=== PATIENT | female | born 1945 | race Caucasian/White ===

== ENCOUNTER 2020-10-24 11:22 | Inpatient (IN) | payer MEDICARE, SELFPAY ==
[2020-10-24] VITALS (19 sets, daily range): BP systolic 148–201; BP diastolic 85–101; PULSE 85–90; RESP 16–20; TEMP 36.2–36.8; O2SAT 95–100; BMI 30.3
--- NOTE | ~2020-10-24 | US_ITS ---
EXAMINATION: US abdomen limited DATE: 10/24/2020 13:19 INDICATION: Epigastric abdominal pain. TECHNIQUE: Multiple grayscale and Doppler ultrasound images of the abdomen were obtained. COMPARISON: None FINDINGS: The pancreas demonstrates indistinct margins, consistent with acute pancreatitis. The liver demonstrates coarsened echotexture and surface nodularity, consistent with cirrhosis. There is nayeli l flow in main portal vein. The gallbladder is normal in size. No gallstones. Gallbladder wall thicke jp is noted, likely secondary to chronic liver disease and/or interstitial edema. There is no sonog raphic Dobbins sign. The common duct is normal and measures 6 mm. IMPRESSION: 1. Acute pancreatitis. 2. Heterogeneous and nodular liver suspicious for cirrhosis. Reviewed, dictated and finalized at location B. NER
--- NOTE | ~2020-10-24 | CT_ITS ---
EXAMINATION: CT abdomen pelvis w con DATE: 10/25/2020 08:59 INDICATION: Epigastric abdominal pain. Acute pancreatitis. TECHNIQUE: Computed tomography (CT) of the abdomen and pelvis was performed with 100 mL Omnipaque 350 intravenous contrast. Automated exposure control and iterative reconstruction technique were employe d. The dose-length product was 612.05 mGy-cm. COMPARISON: Ultrasound 10/24/2020 FINDINGS: The visualized portions of the lung bases demonstrate mild atelectasis. There is mild bronc hiectasis in the lower lobes. No pleural effusion. The heart size is normal. No pericardial effusion. The liver is normal. Calcifications in the spleen are consistent with old granulomatous disease. The gallbladder is normal in size. Gallbladder wall thickening is noted. There is fat stranding around t he pancreas, consistent with pancreatitis. The adrenal glands and kidneys are normal. There is divert iculosis of the colon without evidence of diverticulitis. There are no dilated loops of bowel. The ap pendix is normal. There is an umbilical hernia containing fat. There are no pathologically enlarged l ymph nodes. The endometrial complex is thickened to 9 mm. There is trace pelvic ascites. There is mod erate lumbar spondylosis. IMPRESSION: 1. Acute interstitial pancreatitis. 2. Gallbladder wall thickening, which may be secondary to chronic cholecystitis, chronic liver diseas e, or interstitial edema. 3. Thickened endometrial complex. The differential diagnosis includes endometrial hyperplasia, polyp, and carcinoma. Biopsy is recommended. Reviewed, dictated and finalized at location B. CAL INSTRUMENT MECHANIC IMPRESSION: 1. Acute interstitial pancreatitis. 2. Gallbladder wall thickening, which may be secondary to chronic cholecystitis , chronic liver disease, or interstitial edema. 3. Thickened endometrial complex. The differential diagnosis includes endometri al hyperplasia, polyp, and carcinoma. Biopsy is recommended.
--- NOTE | ~2020-10-24 | US_ITS ---
EXAMINATION: US pelvic complete w TV DATE: 10/25/2020 14:09 INDICATION: Thickened endometrium. TECHNIQUE: Multiple transabdominal and transvaginal sonographic images of the pelvis were obtained. COMPARISON: CT abdomen and pelvis 10/25/2020 FINDINGS: TRANSABDOMINAL ULTRASOUND: The uterus measures 8.8 x 2.7 x 3.8 cm. There is no free fluid in the pelvis. TRANSVAGINAL ULTRASOUND: The endometrial complex measures 10 mm in thickness. The right ovary measures 1.9 x 1.8 x 1.2 cm. The left ovary measures 1.7 x 1.9 x 1.6 cm. There is normal vascular flow in the ovaries. IMPRESSION: 1. Thickened endometrial complex. The differential diagnosis includes endometrial hyperplasia, polyp, and carcinoma. Biopsy is recommended. Reviewed, dictated and finalized at location B. BLEACHING PLEATER IMPRESSION: 1. Thickened endometrial complex. The differential diagnosis includes endometri al hyperplasia, polyp, and carcinoma. Biopsy is recommended.
[2020-10-24 11:44] LABS: Basophils Absolute Auto 0.1 K/mm3 (0.0-0.1); Basophils Percent Auto 0.5 % (0.2-1.2); Eosinophils Absolute Auto 0.2 K/mm3 (0-0.3); Eosinophils Percent Auto 2.2 % (0-4.4); Hematocrit 48.5 % (37.0-47.0); Hemoglobin 15.8 g/dL (12.0-15.0); Immature Granulocyte Absolute 0.03 K/mm3 (0.00-0.031); Immature Granulocyte Percent A 0.3 % (0-0.5); Lymphocytes Absolute Auto 1.34 K/mm3 (0.9-3.2); Lymphocytes Percent Auto 12.8 % (18.3-44.2); Mean Corpuscular HGB Conc 32.6 g/dl (32-36); Mean Corpuscular Hemoglobin 29.7 pg (26-34); Mean Corpuscular Volume 91.2 fl (80-100); Mean Platelet Volume 10.4 fl (7.4-10.4); Monocytes Absolute Auto 0.8 K/mm3 (0.1-0.6); Monocytes Percent Auto 7.6 % (2.6-8.5); Neutrophils Percent Auto 76.6 % (45.5-73.1); Platelet Count Result 263 k/mm3 (150-375); Red Blood Count 5.32 M/mm3 (4.2-5.4); Red Cell Distribution Width 13.1 % (11.5-14.5); White Blood Count 10.5 K/mm3 (4.5-10.0)
[2020-10-24 11:46] LABS: Add Urine Microscopic? YES; Appearance Urine Clear (Clear); Bacteria Urine Trace /hpf; Bilirubin Urine Negative (Negative); Blood Urine Negative (Negative); Color Urine Yellow (Yellow); Glucose Urine UA Negative (Negative); Ketones Urine Negative (Negative); Leukocyte Esterase Ur Trace LEU/UL (Negative); Mucus Urine Rare /lpf; Nitrate Urine Negative (Negative); Protein Urine Negative (Negative); RBC Urine 0-2 /hpf (0-2); Squamous Epithelial Cell Urine Occasional /hpf (Few); Urobilinogen Urine Negative mg/dL (<2.0); WBC Urine 0-3 /hpf
[2020-10-24 12:10] LABS: Alanine Aminotransferase 71 U/L (4-35); Albumin Level 4.4 g/dL (3.5-5.1); Alkaline Phosphatase 106 U/L (38-126); Anion Gap 9 mmol/L (8-16); Aspartate Amino Transferase 115 U/L (14-36); Bilirubin,Total 1.3 mg/dL (0.2-1.3); Blood Urea Nitrogen 18 mg/dL (7-17); Calcium 9.5 mg/dL (8.4-10.2); Carbon Dioxide 31 mmol/L (22-30); Chloride 102 mmol/L (98-107); Estimated CRCL calculation 41 ml/min; Estimated Glomerular Filt Rate 49; Glucose 119 mg/dL (65-105); Sodium 142 mmol/L (137-145)
--- NOTE | 2020-10-24 12:57 | ED.ABDPAIN ---
HPI - Abdominal Pain General Chief Complaint: Abdominal Pain Stated Complaint: ABD pain Time Seen by Provider: 10/24/20 11:28 Source: patient Mode of arrival: ambulatory Limitations: no limitations History of Present Illness HPI narrative: 75-year-old female Previously healthy except for her high blood pressure Complains of roughly a 1 month history of episodic upper abdominal pains She cannot identify anything that seems to trigger the episodes, she notes that one time they were relieved by bowel movement She does not smoke rarely drinks alcohol rarely takes NSAIDs No previous abdominal operations Related Data Home Medications Medication Instructions Recorded Confirmed biotin 5,000 mcg sublingual tablet 5,000 mcg SUBLINGUAL DAILY 05/23/20 cyanocobalamin (vitamin B-12) 500 500 mcg PO DAILY 05/23/20 mcg tablet losartan 50 mg DAILY 10/24/20 Allergies Allergy/AdvReac Type Severity Reaction Status Date / Time gemfibrozil Allergy Unknown Abdominal Verified 05/23/20 14:04 pain lisinopril Allergy Unknown Cough Verified 05/23/20 14:04 lovastatin Allergy Unknown Nausea And Verified 05/23/20 14:04 Vomiting PMFSH Past Medical History Medical History (Updated 10/24/20 @ 14:17 by Sim Kate MD) Hyperlipidemia Hypertension Vitamin D deficiency Family History Family History Father Family history of kidney disease Family history of renal failure Mother Carcinoma of colon Family history of cardiovascular disease Grandparent Diabetes mellitus Family history of cardiovascular disease Family history of Parkinson's disease Social History Social History Smoking status: Never smoker Alcohol intake: current Substance use: never Substance use type: does not use Gender identity (if verbalized by the patient): Female Spiritual care concerns: No Agree to blood products: Yes Course Course Emergency Course: mildly abnl lfts gb unremarkable but lipase elías high consider, lipids, passed gallstone Vital Signs Vital signs: Vital Signs Pulse Oximetry 98 10/24/20 11:39 Temperature 36.8 C 10/24/20 11:41 Pulse Rate 85 10/24/20 11:41 Respiratory Rate 18 10/24/20 11:41 Blood Pressure 162/88 H 10/24/20 12:46 Pulse Oximetry 95 10/24/20 12:46 MDM - Abdominal Pain Lab Data Result diagrams: 10/24/20 11:37 10/24/20 11:37 Labs: Lab Results 10/24/20 10/24/20 10/24/20 Range/Units 11:37 11:37 11:38 WBC 10.5 H (4.5-10.0) K/mm3 RBC 5.32 (4.2-5.4) M/mm3 Hgb 15.8 H (12.0-15.0) g/dL Hct 48.5 H (37.0-47.0) % MCV 91.2 (80-100) fl MCH 29.7 (26-34) pg MCHC 32.6 (32-36) g/dl RDW 13.1 (11.5-14.5) % Plt Count 263 (150-375) k/mm3 MPV 10.4 (7.4-10.4) fl Immature Gran % (Auto) 0.3 (0-0.5) % Neut % (Auto) 76.6 H (45.5-73.1) % Lymph % (Auto) 12.8 L (18.3-44.2) % Christian % (Auto) 7.6 (2.6-8.5) % Eos % (Auto) 2.2 (0-4.4) % Baso % (Auto) 0.5 (0.2-1.2) % Lymph # (Auto) 1.34 (0.9-3.2) K/mm3 Christian # (Auto) 0.8 H (0.1-0.6) K/mm3 Eos # (Auto) 0.2 (0-0.3) K/mm3 Baso # (Auto) 0.1 (0.0-0.1) K/mm3 Abs Immat Gran (auto) 0.03 (0.00-0.031) K/mm3 Absolute Neuts (auto) 8.0 H (1.3-6.7) K/mm3 Absolute Nucleated RBC 0.0 (0.0-0.012) K/mm3 Nucleated RBC % 0.0 (0.0-0.2) % Sodium 142 (137-145) mmol/L Potassium 4.0 (3.4-5.0) mmol/L Chloride 102 (98-107) mmol/L Carbon Dioxide 31 H (22-30) mmol/L Anion Gap 9 (8-16) mmol/L BUN 18 H (7-17) mg/dL Creatinine 1.10 H (0.7-1.0) mg/dL Estim Creat Clear Calc 41 ml/min Estimated GFR 49 L (59 - ) Glucose 119 H (65-105) mg/dL Calcium 9.5 (8.4-10.2) mg/dL Total Bilirubin 1.3 (0.2-1.3) mg/dL AST 115 H (14-36) U/L ALT 71 H (4-35)
--- NOTE | 2020-10-24 12:59 | PC.NURSE ---
Patient with further orders. patient in ultrasound now.
[2020-10-24 13:08] LABS: Lipase 38712 U/L (23-300)
[2020-10-24] MEDS: BELLADONNA ALK/PHENOB ELIX 10 ML, MAG HYDROX/ALUMINUM HYD/SIMETH 30 ML, LIDOCAINE HCL 2... PO (13:23)
[2020-10-24] MEDS: LACTATED RINGERS 1,000 ML 200 ML IV CONT ×3 (14:33→22:35)
[2020-10-24] MEDS: PANTOPRAZOLE SODIUM IV 40 MG VIAL 80 MG IV PUSH (14:33)
--- NOTE | 2020-10-24 14:42 | PC.NURSE ---
patient aware of diagnosis and treatment plan. planning for admission upstairs. has bed assignment. meds given. SBAR faxed.
--- NOTE | 2020-10-24 14:50 | PC.NURSE ---
SBAR completed and faxed to floor.
[2020-10-24 15:17] LABS: LDL Cholesterol Direct 249 mg/dL
--- NOTE | 2020-10-24 15:30 | PC.NURSE ---
spoke with RN on 2nd floor. ok to transfer to [facility].
[2020-10-24 15:40] LABS: HDL Direct 59 mg/dL; Triglycerides 218 mg/dL (<150)
[2020-10-24 16:06] LABS: Cholesterol 369 mg/dL (0-200)
--- NOTE | 2020-10-24 16:09 | ADMGEN ---
This patient, Eugenia Kohler, was admitted to 2 Medical Room 241-. Patient/family oriented to hospital policies and general routines including ID bracelet, bed and alarms, visiting hours, pain management, procedures, bathroom and other care routines, personal items, smoking policy, room service/diet, and visiting hours. Information on how to activate the Rapid Response Team has been discussed. Patient/Family are encouraged to report perceived risks to care and to ask questions if they do not understand what they are told or what they should do.
--- NOTE | 2020-10-24 17:21 | PM.IMHP ---
H&P: HPI History of Present Illness Date/Time: 10/24/20 17:21 Chief complaint: acute pancreatitis Narrative: Eugenia Kohler is a 75 year old female with no significant past medical history other than hypertension and mild hyperlipidemia patient presented emergency department a complaint of abdominal epigastric it is not radiate to the back, only occurs anterior expect of the abdomen, patient states that her symptoms started about 2 months ago and since then she has had 5 episodes abdominal pain with nausea but no vomiting and pain resolved itself without any treatment however last couple of days patient had been quite uncomfortable and pain was persisting today patient came to emergency department for further evaluation, patient creatinine is slightly elevated the patient had a abdominal ultrasound it showed patient has acute pancreatitis and her lipase are elevated 38,712, AST 115, ALT 71. Patient denies any history of alcohol and occasionally patient drinks once in a while, no history of hepatitis, no family history of pancreatic cancer however there was a colon cancer and family with her mother. Plan is to monitor patient keep her NPO, will trend lipase, check hepatitis panel, once patient kidney function improves, will do the CT scan of the abdomen. Review of Systems Review of Systems: All systems reviewed & are unremarkable except as noted in HPI and below PMFSH Past Medical History Medical History (Updated 10/24/20 @ 14:17 by Sim Kate MD) Hyperlipidemia Hypertension Vitamin D deficiency Family History Family History Father Family history of kidney disease Family history of renal failure Mother Carcinoma of colon Family history of cardiovascular disease Grandparent Diabetes mellitus Family history of cardiovascular disease Family history of Parkinson's disease Social History Social History Smoking status: Never smoker Alcohol intake: never Substance use: never Substance use type: does not use Gender identity (if verbalized by the patient): Female Spiritual care concerns: No Agree to blood products: Yes Meds Home Medications and Allergies Home Medications Medication Instructions Recorded Confirmed Type cholecalciferol (vitamin D3) 125 5,000 unit PO DAILY #90 cap 10/06/19 10/24/20 Rx mcg (5,000 unit) capsule biotin 5,000 mcg sublingual tablet 5,000 mcg SUBLINGUAL DAILY 05/23/20 10/24/20 History cyanocobalamin (vitamin B-12) 500 500 mcg PO DAILY 05/23/20 10/24/20 History mcg tablet losartan 50 mg PO DAILY 10/24/20 10/24/20 History Allergies Allergy/AdvReac Type Severity Reaction Status Date / Time gemfibrozil Allergy Unknown Abdominal Verified 05/23/20 14:04 pain lisinopril Allergy Unknown Cough Verified 05/23/20 14:04 lovastatin Allergy Unknown Nausea And Verified 05/23/20 14:04 Vomiting Vital Signs Vital Signs - 24 hr 10/24/20 11:39 10/24/20 11:41 10/24/20 11:45 Temperature 98.2 F Pulse Rate 85 Respiratory Rate 18 Blood Pressure 201/95 H Pulse Oximetry 98 100 99 10/24/20 11:47 10/24/20 11:48 10/24/20 12:08 Temperature Pulse Rate Respiratory Rate Blood Pressure 179/101 H Pulse Oximetry 97 100 98 10/24/20 12:15 10/24/20 12:17 10/24/20 12:18 Temperature Pulse Rate Respiratory Rate Blood Pressure 158/87 H Pulse Oximetry 95 96 95 10/24/20 12:31 10/24/20 12:32 10/24/20 12:45 Temperature Pulse Rate Respiratory Rate Blood Pressure 164/86 H Pulse Oximetry 95 96 95 10/24/20 12:46 10/24/20 12:47 10/24/20 14:37 Temperature Pulse Rate Respiratory Rate Blood Pressure 162/88 H Pulse Oximetry 95 96 97 10/24/20 14:38 10/24/20 15:07 10/24/20 15:50 Temperature 97.2 F L Pulse Rate 90 Respiratory Rate 16 Blood Pressure 153/98 H 148/85 H Pulse Oximetry 95 96
[2020-10-24] MEDS: ONDANSETRON INJ 4 MG/2 ML VIAL IV PUSH (22:37)
[2020-10-25] MEDS: LACTATED RINGERS 1,000 ML 200 ML IV CONT ×2 (03:50→09:07)
[2020-10-25 04:30] VITALS: BP 133/61; PULSE 83; RESP 18; TEMP 37; O2SAT 100
[2020-10-25 05:07] LABS: Basophils Percent Auto 0.4 % (0.2-1.2); Eosinophils Absolute Auto 0.2 K/mm3 (0-0.3); Eosinophils Percent Auto 2.2 % (0-4.4); Hematocrit 38.3 % (37.0-47.0); Hemoglobin 12.7 g/dL (12.0-15.0); Immature Granulocyte Absolute 0.03 K/mm3 (0.00-0.031); Immature Granulocyte Percent A 0.4 % (0-0.5); Lymphocytes Absolute Auto 0.95 K/mm3 (0.9-3.2); Lymphocytes Percent Auto 11.2 % (18.3-44.2); Mean Corpuscular HGB Conc 33.2 g/dl (32-36); Mean Corpuscular Hemoglobin 29.7 pg (26-34); Mean Corpuscular Volume 89.7 fl (80-100); Mean Platelet Volume 10.2 fl (7.4-10.4); Monocytes Absolute Auto 0.8 K/mm3 (0.1-0.6); Monocytes Percent Auto 9.1 % (2.6-8.5); Neutrophils Absolute Auto 6.5 K/mm3 (1.3-6.7); Neutrophils Percent Auto 76.7 % (45.5-73.1); Platelet Count Result 188 k/mm3 (150-375); Red Blood Count 4.27 M/mm3 (4.2-5.4); Red Cell Distribution Width 13.1 % (11.5-14.5); White Blood Count 8.5 K/mm3 (4.5-10.0)
[2020-10-25 05:32] LABS: LDL Cholesterol Direct 184 mg/dL
[2020-10-25 05:43] LABS: Alanine Aminotransferase 80 U/L (4-35); Albumin Level 3.3 g/dL (3.5-5.1); Alkaline Phosphatase 89 U/L (38-126); Anion Gap 2 mmol/L (8-16); Aspartate Amino Transferase 62 U/L (14-36); Bilirubin Indirect 0.7 mg/dL (0-1.1); Bilirubin,Total 0.7 mg/dL (0.2-1.3); Blood Urea Nitrogen 12 mg/dL (7-17); Calcium 8.8 mg/dL (8.4-10.2); Carbon Dioxide 31 mmol/L (22-30); Chloride 105 mmol/L (98-107); Cholesterol 262 mg/dL (0-200); Estimated CRCL calculation 41 ml/min; Estimated Glomerular Filt Rate 49; Glucose 100 mg/dL (65-105); HDL Direct 44 mg/dL; Lipase 1613 U/L (23-300); Magnesium 1.9 mg/dL (1.6-2.3); Potassium 3.9 mmol/L (3.4-5.0); Sodium 138 mmol/L (137-145); Triglycerides 98 mg/dL (<150)
[2020-10-25 06:09] LABS: Hepatitis B Surface Antigen Negative (Negative)
[2020-10-25 06:15] LABS: HAV RESULT Negative (Negative); Hepatitis B Core IgM Result Negative (Negative)
[2020-10-25] MEDS: ONDANSETRON INJ 4 MG/2 ML VIAL IV PUSH (06:19)
[2020-10-25 06:26] LABS: Hepatitis C Virus Antibody Negative (Negative)
--- NOTE | 2020-10-25 08:47 | PC.NURSE ---
Patient to CT scan per wheelchair. IVF saline locked.
--- NOTE | 2020-10-25 08:53 | WPDGICN ---
Assessment and Plan Assessment and plan (1) Acute pancreatitis: Code(s): K85.90 - Acute pancreatitis without necrosis or infection, unspecified Status: Acute Assessment and Plan: Patient has acute pancreatitis. The etiology is unclear. No obvious gallstones evident by ultrasound. No clinical findings for cirrhosis. Agree with CT scan of the abdomen and pancreas to assess more thoroughly. Most likely she has idiopathic pancreatitis. But cannot exclude passage of a common duct stone. Will continue to monitor LFTs and lipase period and p.o. and pain control for now. Advance diet slowly. (2) Family history of colon cancer in mother: Code(s): Z80.0 - Family history of malignant neoplasm of digestive organs Status: Acute Assessment and Plan: Patient's mother had colon cancer. Last screening colonoscopy was 6 years ago. Plan is for follow-up colonoscopy this can be arranged electively as an outpatient after discharge. GI Consult Note Consult date/time: 10/25/20 08:53 HPI: Eugenia Kohler is a 75 year old female I am asked to see at the request of the hospitalist service. Patient reports over last 2 months has had several episodes of epigastric pain. She has had no significant nausea vomiting. The pain became rather intense yesterday and persisted this prompted her to go to the emergency room. In the emergency room she was identified as having elevated lipase. Ultrasound consistent with pancreatitis. There was a question of a nodular appearance to the liver as well. Family history is significant that her mother had colon cancer. Patient did have a colonoscopy 6 years ago. She denies any significant nausea or vomiting. She has had no weight loss or bleeding. No symptoms prior to this episode over the last several months. Review of Systems Review of Systems: All systems reviewed & are unremarkable except as noted in HPI and below [facility] Past Medical History Medical History (Updated 10/25/20 @ 08:56 by Sim Nolen MD) Hyperlipidemia Hypertension Vitamin D deficiency Family History Family History Father Family history of kidney disease Family history of renal failure Mother Carcinoma of colon Family history of cardiovascular disease Grandparent Diabetes mellitus Family history of cardiovascular disease Family history of Parkinson's disease Social History Social History Smoking status: Never smoker Alcohol intake: never Substance use: never Substance use type: does not use Gender identity (if verbalized by the patient): Female Spiritual care concerns: No Agree to blood products: Yes Meds Home Medications and Allergies Home Medications Medication Instructions Recorded Confirmed Type cholecalciferol (vitamin D3) 125 5,000 unit PO DAILY #90 cap 10/06/19 10/24/20 Rx mcg (5,000 unit) capsule biotin 5,000 mcg sublingual tablet 5,000 mcg SUBLINGUAL DAILY 05/23/20 10/24/20 History cyanocobalamin (vitamin B-12) 500 500 mcg PO DAILY 05/23/20 10/24/20 History mcg tablet losartan 50 mg PO DAILY 10/24/20 10/24/20 History Allergies Allergy/AdvReac Type Severity Reaction Status Date / Time gemfibrozil Allergy Unknown Abdominal Verified 05/23/20 14:04 pain lisinopril Allergy Unknown Cough Verified 05/23/20 14:04 lovastatin Allergy Unknown Nausea And Verified 05/23/20 14:04 Vomiting Vital Signs Vital Signs - 24 hr 10/24/20 11:39 10/24/20 11:41 10/24/20 11:45 Temperature 98.2 F Pulse Rate 85 Respiratory Rate 18 Blood Pressure 201/95 H Pulse Oximetry 98 100 99 10/24/20 11:47 10/24/20 11:48 10/24/20 12:08 Temperature Pulse Rate Respiratory Rate Blood Pressure 179/101 H Pulse Oximetry 97 100 98 10/24/20 12:15 10/24/20 12:17 10/24/20 12:18 Temperature Pulse Rate Respirator
--- NOTE | 2020-10-25 09:03 | PC.NURSE ---
Patient return from CT scan.
[2020-10-25] MEDS: PANTOPRAZOLE SODIUM IV 40 MG VIAL IV PUSH (09:07)
--- NOTE | 2020-10-25 12:14 | PM.GYNPNOP ---
YARD INSPECTOR - A/P Assessment and plan (1) Thickened endometrium: Code(s): R93.89 - Abnormal findings on diagnostic imaging of other specified body structures Status: Acute Assessment and Plan: Spoke with the patient, she denies any vaginal bleeding, she denies any vaginal discharge, pelvic pain. We talked about the findings on the CT scan. There is a thickening that is heterogeneous. We agreed to proceed with the ultrasound to further evaluate the endometrium. We discussed endometrial biopsy, hysteroscopy D&C. We are going to follow up on the ultrasound results and consider hysteroscopy D&C here at the hospital while she is here. Time Spent With Patient Time: Total time spent is greater than 50% in coordination of care (as documented) at patient's floor/unit and/or counseling patient: Time with patient: less than 15 minutes YARD INSPECTOR- PN:Subj Post-Op Subjective Date/time seen: 10/25/20 12:14 Spoke with the patient, she denies any vaginal bleeding, she denies any vaginal discharge, pelvic pain. We talked about the findings on the CT scan. There is a thickening that is heterogeneous. We agreed to proceed with the ultrasound to further evaluate the endometrium. We discussed endometrial biopsy, hysteroscopy D&C. We are going to follow up on the ultrasound results and consider hysteroscopy D&C here at the hospital while she is here. YARD INSPECTOR - PN: Obj Data Vital Signs Vital Signs: Vital Signs - 24 hr 10/24/20 12:15 10/24/20 12:17 10/24/20 12:18 Temperature Pulse Rate Respiratory Rate Blood Pressure 158/87 H Pulse Oximetry 95 96 95 10/24/20 12:31 10/24/20 12:32 10/24/20 12:45 Temperature Pulse Rate Respiratory Rate Blood Pressure 164/86 H Pulse Oximetry 95 96 95 10/24/20 12:46 10/24/20 12:47 10/24/20 14:37 Temperature Pulse Rate Respiratory Rate Blood Pressure 162/88 H Pulse Oximetry 95 96 97 10/24/20 14:38 10/24/20 15:07 10/24/20 15:50 Temperature 97.2 F L Pulse Rate 90 Respiratory Rate 16 Blood Pressure 153/98 H 148/85 H Pulse Oximetry 95 96 97 10/24/20 21:44 10/25/20 04:30 Temperature 97.3 F L 98.6 F Pulse Rate 85 83 Respiratory Rate 20 18 Blood Pressure 151/85 H 133/61 Pulse Oximetry 96 100 Intake/Output Intake/Output: Intake & Output 10/22/20 10/23/20 10/24/20 10/25/20 23:59 23:59 23:59 23:59 Intake Total 1999 2390 Output Total 1200 Balance 1999 1190 Meds/Results Medications: Active Medications Generic Name Dose Route Start Last Admin Trade Name Freq PRN Reason Stop Dose Admin Fentanyl Citrate 50 mcg 10/24/20 14:09 Fentanyl Citrate Inj (*Crx) 100 Mcg/2 Ml Vial IV PUSH Q2H PRN Pain Rated 7-10 Lactated Ringer's 1,000 mls @ 200 mls/hr 10/24/20 14:10 10/25/20 09:07 Lr - Lactated Ringers Iv IV CONT 200 mls/hr .Q5H REYMUNDO Administration Ondansetron HCl 4 mg 10/24/20 14:09 10/25/20 06:19 Ondansetron Inj 4 Mg/2 Ml Vial IV PUSH 4 mg Q4H PRN Administration Nausea Pantoprazole Sodium 40 mg 10/25/20 09:00 10/25/20 09:07 Pantoprazole Sodium Iv 40 Mg Vial IV PUSH 40 mg QAM REYMUNDO Administration Radiology Results: ITS Impressions Abdomen Ultrasound 10/24/20 13:20 IMPRESSION: 1. Acute pancreatitis. 2. Heterogeneous and nodular liver suspicious for cirrhosis. Abdomen/Pelvis CT 10/25/20 09:35 IMPRESSION: 1. Acute interstitial pancreatitis. 2. Gallbladder wall thickening, which may be secondary to chronic cholecystitis, chronic liver disease, or interstitial edema. 3. Thickened endometrial complex. The differential diagnosis includes endometrial hyperplasia, polyp, and carcinoma. Biopsy is recommended. Labs CBC & Chem 7: 10/25/20 04:51 10/25/20 04:51 Labs: Laboratory Results - last 24 hr 10/24/20 10/24/20 10/25/20 11:37 11:37 04:51 WBC 8.5 RBC 4.27 Hgb 12.7 D Hct 38.3 MCV 89.7 MCH 29.7 MCHC 33.2 RDW 13
[2020-10-25 13:13] VITALS: BP 165/84
[2020-10-25 13:25] VITALS: BP 143/66; PULSE 91; RESP 18; TEMP 36.5; O2SAT 96
--- NOTE | 2020-10-25 13:37 | PC.NURSE ---
Patient to ultrasound per wheelchair.
[2020-10-25] MEDS: LACTATED RINGERS 1,000 ML 125 ML IV CONT ×2 (14:47→23:20)
[2020-10-25] MEDS: LOSARTAN POTASSIUM 50 MG TABLET PO (14:54)
--- NOTE | 2020-10-25 15:46 | PM.IMPN ---
Progress Note: A&P Assessment and Plan (1) Acute pancreatitis: Code(s): K85.90 - Acute pancreatitis without necrosis or infection, unspecified Status: Acute Assessment and Plan: Eugenia Kohler is a 75 year old female with no significant past medical history other than hypertension and mild hyperlipidemia patient presented emergency department a complaint of abdominal epigastric it is not radiate to the back, only occurs anterior expect of the abdomen, patient states that her symptoms started about 2 months ago and since then she has had 5 episodes abdominal pain with nausea but no vomiting and pain resolved itself without any treatment however last couple of days patient had been quite uncomfortable and pain was persisting today patient came to emergency department for further evaluation, patient creatinine is slightly elevated the patient had a abdominal ultrasound it showed patient has acute pancreatitis and her lipase were elevated 38,712, upon arrival her lipase have trended down to 1613 today 10/25. Patient denies any history of alcohol and occasionally patient drinks once in a while, no history of hepatitis, no family history of pancreatic cancer however there was a colon cancer and family with her mother. Plan is to monitor patient keep her NPO, will trend lipase, check hepatitis panel, once patient kidney function improves, Today patient had a CT scan of the abdomen and pelvis: 1. Acute interstitial pancreatitis. 2. Gallbladder wall thickening, which may be secondary to chronic cholecystitis, chronic liver disease, or interstitial edema. 3. Thickened endometrial complex. The differential diagnosis includes endometrial hyperplasia, polyp, and carcinoma. Biopsy is recommended. Patient clinical symptoms have improved and her lipase have trended down will start the patient on clear liquid and advanced her diet as tolerated, will consult back end web developer further recommendation. Will continue to monitor patient, seen by GI and further recommendation to follow (2) Renal insufficiency: Code(s): N28.9 - Disorder of kidney and ureter, unspecified Status: Acute Assessment and Plan: Most likely secondary to dehydration due to poor p.o. intake will hydrate the patient and monitor kidney function (3) Hyperlipidemia: Code(s): E78.5 - Hyperlipidemia, unspecified Status: Acute Assessment and Plan: Clinically stable patient is NPO (4) Vitamin D deficiency: Code(s): E55.9 - Vitamin D deficiency, unspecified Status: Acute Assessment and Plan: Clinically stable patient is NPO (5) Hypertension: Code(s): I10 - Essential (primary) hypertension Status: Acute Assessment and Plan: Will monitor patient is NPO Subjective Date/time seen: Eugenia Kohler is a 75 year old female with no significant past medical history other than hypertension and mild hyperlipidemia patient presented emergency department a complaint of abdominal epigastric it is not radiate to the back, only occurs anterior expect of the abdomen, patient states that her symptoms started about 2 months ago and since then she has had 5 episodes abdominal pain with nausea but no vomiting and pain resolved itself without any treatment however last couple of days patient had been quite uncomfortable and pain was persisting today patient came to emergency department for further evaluation, patient creatinine is slightly elevated the patient had a abdominal ultrasound it showed patient has acute pancreatitis and her lipase were elevated 38,712, upon arrival her lipase have trended down to 1613 today 10/25. Patient denies any history of alcohol and occasionally patient drinks once in a while, no history of hepatitis, no family history of pancreatic cancer however there was a colon cancer and family with her mother. Plan is to monitor patient keep her NPO, will trend lipase, check hepatitis panel, once patient kidney func
[2020-10-25 22:00] VITALS: BP 156/75; PULSE 92; RESP 20; TEMP 37.3; O2SAT 100
[2020-10-26 05:18] VITALS: BP 119/55; PULSE 78; RESP 20; TEMP 36.7; O2SAT 96
[2020-10-26 05:43] LABS: Hematocrit 35.3 % (37.0-47.0); Hemoglobin 11.5 g/dL (12.0-15.0); Mean Corpuscular HGB Conc 32.6 g/dl (32-36); Mean Corpuscular Hemoglobin 29.6 pg (26-34); Mean Corpuscular Volume 90.7 fl (80-100); Mean Platelet Volume 10.7 fl (7.4-10.4); Platelet Count Result 181 k/mm3 (150-375); Red Blood Count 3.89 M/mm3 (4.2-5.4); White Blood Count 8.2 K/mm3 (4.5-10.0)
[2020-10-26 07:10] LABS: Alanine Aminotransferase 47 U/L (4-35); Alkaline Phosphatase 77 U/L (38-126); Anion Gap 3 mmol/L (8-16); Aspartate Amino Transferase 30 U/L (14-36); Bilirubin,Total 0.7 mg/dL (0.2-1.3); Blood Urea Nitrogen 8 mg/dL (7-17); Calcium 8.3 mg/dL (8.4-10.2); Carbon Dioxide 31 mmol/L (22-30); Chloride 103 mmol/L (98-107); Estimated CRCL calculation 41 ml/min; Estimated Glomerular Filt Rate 49; Glucose 92 mg/dL (65-105); Lipase 96 U/L (23-300); Magnesium 1.9 mg/dL (1.6-2.3); Potassium 3.7 mmol/L (3.4-5.0); Sodium 137 mmol/L (137-145)
[2020-10-26] MEDS: LACTATED RINGERS 1,000 ML 125 ML IV CONT (07:25)
[2020-10-26] MEDS: PANTOPRAZOLE SODIUM IV 40 MG VIAL IV PUSH (08:50)
[2020-10-26] MEDS: LOSARTAN POTASSIUM 50 MG TABLET PO (08:50)
--- NOTE | 2020-10-26 10:23 | WPDGIPROGNO ---
Progress Note: A&P Additional Plan Patient feels much better today. Denies abdominal pain. Was tolerating liquid diet. Physical exam reveals patient be alert. Vital signs stable. HEENT exam she is anicteric. Lungs are clear. Heart without murmur. Abdomen bowel sounds present soft nontender with no organomegaly. Labs reveal decline in lipase. Now 96. LFTs normalizing. Ultrasound and CT scan failed to see gallstones. Nonspecific gallbladder thickening on CT scan. Impression 1. Pancreatitis. Appears to be idiopathic. Clinically improving. Would recommend advancing to low-fat diet. Supportive care. If pancreatitis were to recur then elective cholecystectomy would be advised. 2. Endometrial mass. Gynecological follow-up advised. I understand biopsy to be performed. Subjective Date/time seen: 10/26/20 10:23 Objective Data Vital Signs Vital Signs: Vital Signs - 24 hr 10/25/20 13:13 10/25/20 13:25 10/25/20 22:00 Temperature 97.7 F 99.1 F Pulse Rate 91 92 Respiratory Rate 18 20 Blood Pressure 165/84 H 143/66 H 156/75 H Pulse Oximetry 96 100 10/26/20 05:18 Temperature 98.1 F Pulse Rate 78 Respiratory Rate 20 Blood Pressure 119/55 L Pulse Oximetry 96 Intake/Output Intake/Output: Intake & Output 10/23/20 10/24/20 10/25/20 10/26/20 23:59 23:59 23:59 23:59 Intake Total 1999 6750 1000 Output Total 2725 2200 Balance 1999 4025 -1200 Meds/Results Medications: Active Medications Generic Name Dose Route Start Last Admin Trade Name Freq PRN Reason Stop Dose Admin Fentanyl Citrate 50 mcg 10/24/20 14:09 Fentanyl Citrate Inj (*Crx) 100 Mcg/2 Ml Vial IV PUSH Q2H PRN Pain Rated 7-10 Lactated Ringer's 1,000 mls @ 125 mls/hr 10/24/20 14:10 10/26/20 07:25 Lr - Lactated Ringers Iv IV CONT 125 mls/hr .Q8H REYMUNDO Administration Losartan Potassium 50 mg 10/25/20 09:00 10/26/20 08:50 Losartan Potassium 50 Mg Tablet PO 50 mg DAILY REYMUNDO Administration Ondansetron HCl 4 mg 10/24/20 14:09 10/25/20 06:19 Ondansetron Inj 4 Mg/2 Ml Vial IV PUSH 4 mg Q4H PRN Administration Nausea Pantoprazole Sodium 40 mg 10/25/20 09:00 10/26/20 08:50 Pantoprazole Sodium Iv 40 Mg Vial IV PUSH 40 mg QAM REYMUNDO Administration Radiology Results: ITS Impressions Abdomen Ultrasound 10/24/20 13:20 IMPRESSION: 1. Acute pancreatitis. 2. Heterogeneous and nodular liver suspicious for cirrhosis. Abdomen/Pelvis CT 10/25/20 09:35 IMPRESSION: 1. Acute interstitial pancreatitis. 2. Gallbladder wall thickening, which may be secondary to chronic cholecystitis, chronic liver disease, or interstitial edema. 3. Thickened endometrial complex. The differential diagnosis includes endometrial hyperplasia, polyp, and carcinoma. Biopsy is recommended. Pelvic/Transvag US 10/25/20 14:15 IMPRESSION: 1. Thickened endometrial complex. The differential diagnosis includes endometrial hyperplasia, polyp, and carcinoma. Biopsy is recommended. Labs Labs: Laboratory Results - last 24 hr 10/26/20 10/26/20 05:04 06:36 WBC 8.2 RBC 3.89 L Hgb 11.5 L Hct 35.3 L MCV 90.7 MCH 29.6 MCHC 32.6 RDW 13.0 Plt Count 181 MPV 10.7 H Sodium 137 Potassium 3.7 Chloride 103 Carbon Dioxide 31 H Anion Gap 3 L BUN 8 Creatinine 1.10 H Estim Creat Clear Calc 41 Estimated GFR 49 L Glucose 92 Calcium 8.3 L Magnesium 1.9 Total Bilirubin 0.7 AST 30 ALT 47 H Alkaline Phosphatase 77 Total Protein 6.0 L Albumin 3.0 L Lipase 96
--- NOTE | 2020-10-26 12:42 | PM.DS ---
DS: Admitting Diagnosis Admitting Diagnosis Admitting Diagnosis: acute pancreatitis DS: Discharge Diagnosis Discharge Diagnosis (1) Acute pancreatitis: Code(s): K85.90 - Acute pancreatitis without necrosis or infection, unspecified Status: Acute Assessment and Plan: Eugenia Kohler is a 75 year old female with no significant past medical history other than hypertension and mild hyperlipidemia patient presented emergency department a complaint of abdominal epigastric it is not radiate to the back, only occurs anterior expect of the abdomen, patient states that her symptoms started about 2 months ago and since then she has had 5 episodes abdominal pain with nausea but no vomiting and pain resolved itself without any treatment however last couple of days patient had been quite uncomfortable and pain was persisting today patient came to emergency department for further evaluation, patient creatinine is slightly elevated the patient had a abdominal ultrasound it showed patient has acute pancreatitis and her lipase were elevated 38,712, upon arrival her lipase have trended down to 1613 today 10/25. Patient denies any history of alcohol and occasionally patient drinks once in a while, no history of hepatitis, no family history of pancreatic cancer however there was a colon cancer and family with her mother. Plan is to monitor patient keep her NPO, will trend lipase, check hepatitis panel, once patient kidney function improves, Today patient had a CT scan of the abdomen and pelvis: 1. Acute interstitial pancreatitis. 2. Gallbladder wall thickening, which may be secondary to chronic cholecystitis, chronic liver disease, or interstitial edema. 3. Thickened endometrial complex. The differential diagnosis includes endometrial hyperplasia, polyp, and carcinoma. Biopsy is recommended. Patient clinical symptoms have improved and her lipase have trended down will start the patient on clear liquid and advanced her diet as tolerated, will consult retail attendant further recommendation. Will continue to monitor patient, seen by GI and further recommendation to follow (2) Renal insufficiency: Code(s): N28.9 - Disorder of kidney and ureter, unspecified Status: Acute Assessment and Plan: Most likely secondary to dehydration due to poor p.o. intake will hydrate the patient and monitor kidney function (3) Hyperlipidemia: Code(s): E78.5 - Hyperlipidemia, unspecified Status: Acute Assessment and Plan: Clinically stable patient is NPO (4) Vitamin D deficiency: Code(s): E55.9 - Vitamin D deficiency, unspecified Status: Acute Assessment and Plan: Clinically stable patient is NPO (5) Hypertension: Code(s): I10 - Essential (primary) hypertension Status: Acute Assessment and Plan: Will monitor patient is NPO DS: Summary Hospital Course Reason for hospitalization: Chief complaint: acute pancreatitis Narrative: Eugenia Kohler is a 75 year old female with no significant past medical history other than hypertension and mild hyperlipidemia patient presented emergency department a complaint of abdominal epigastric it is not radiate to the back, only occurs anterior expect of the abdomen, patient states that her symptoms started about 2 months ago and since then she has had 5 episodes abdominal pain with nausea but no vomiting and pain resolved itself without any treatment however last couple of days patient had been quite uncomfortable and pain was persisting today patient came to emergency department for further evaluation, patient creatinine is slightly elevated the patient had a abdominal ultrasound it showed patient has acute pancreatitis and her lipase are elevated 38,712, AST 115, ALT 71. Patient denies any history of alcohol and occasionally patient drinks once in a while, no history of hepatitis, no family history of pancreatic cancer however there was a colon cancer and family
[2020-10-26 12:45] VITALS: BP 139/70; PULSE 74; RESP 20; TEMP 36.4; O2SAT 98
[2020-10-26] MEDS: LACTATED RINGERS 1,000 ML 30 ML IV CONT (13:02)
--- NOTE | 2020-10-26 13:29 | P.HPUP_ITS ---
History and Physical Update Update Date/Time: 10/26/20 13:29 To perform hysteroscopy D&C for abnormal endometriu m. She understands the risk, benefits and alternatives. History and Physical has been reviewed, including an updated exam of the patient. There are NO changes in the patient's condition. Risks, benefits, and alternatives have been discussed and questions answered. Patient agrees to proceed with procedure.
--- NOTE | 2020-10-26 13:34 | WPDANESEPPF ---
Anes - Initial Pre Proc Eval Procedure: Operation Date: 10/26/20 13:30 Proposed Procedures p Hysteroscopy, Dilation and Curettage - Dai Ralph MD Date/Time: 10/26/20 13:34 Surgeon: Kalpana Siddiqui MD Pre Op Diagnosis: acute pancreatitis Patient Data Age: 75 Gender: F Height: 1.63 m Weight: 80.1 kg Last Vital Signs Temp 36.7 C 10/26/20 05:18 Pulse 78 10/26/20 05:18 Resp 20 10/26/20 05:18 BP 119/55 L 10/26/20 05:18 Pulse Ox 96 10/26/20 05:18 Allergies Allergy/AdvReac Type Severity Reaction Status Date / Time lisinopril Allergy Severe Cough Verified 10/26/20 12:56 lovastatin Allergy Severe Nausea And Verified 10/26/20 12:56 Vomiting gemfibrozil Allergy Intermediate Abdominal Verified 10/26/20 12:56 pain Home Medications Medication Instructions Recorded Confirmed Type cholecalciferol (vitamin D3) 125 5,000 unit PO DAILY #90 cap 10/06/19 10/24/20 Rx mcg (5,000 unit) capsule biotin 5,000 mcg sublingual tablet 5,000 mcg SUBLINGUAL DAILY 05/23/20 10/24/20 History cyanocobalamin (vitamin B-12) 500 500 mcg PO DAILY 05/23/20 10/24/20 History mcg tablet losartan 50 mg PO DAILY 10/24/20 10/24/20 History Laboratory Tests 10/26/20 10/26/20 05:04 06:36 WBC 8.2 K/mm3 K/mm3 (4.5-10.0) RBC 3.89 M/mm3 L M/mm3 (4.2-5.4) Hgb 11.5 g/dL L g/dL (12.0-15.0) Hct 35.3 % L % (37.0-47.0) MCV 90.7 fl fl (80-100) MCH 29.6 pg pg (26-34) MCHC 32.6 g/dl g/dl (32-36) RDW 13.0 % % (11.5-14.5) Plt Count 181 k/mm3 k/mm3 (150-375) MPV 10.7 fl H fl (7.4-10.4) Sodium 137 mmol/L mmol/L (137-145) Potassium 3.7 mmol/L mmol/L (3.4-5.0) Chloride 103 mmol/L mmol/L (98-107) Carbon Dioxide 31 mmol/L H mmol/L (22-30) Anion Gap 3 mmol/L L mmol/L (8-16) BUN 8 mg/dL mg/dL (7-17) Creatinine 1.10 mg/dL H mg/dL (0.7-1.0) Estim Creat Clear Calc 41 ml/min ml/min Estimated GFR 49 L (59 - ) Glucose 92 mg/dL mg/dL (65-105) Calcium 8.3 mg/dL L mg/dL (8.4-10.2) Magnesium 1.9 mg/dL mg/dL (1.6-2.3) Total Bilirubin 0.7 mg/dL mg/dL (0.2-1.3) AST 30 U/L U/L (14-36) ALT 47 U/L H U/L (4-35) Alkaline Phosphatase 77 U/L U/L (38-126) Total Protein 6.0 g/dL L g/dL (6.3-8.2) Albumin 3.0 g/dL L g/dL (3.5-5.1) Lipase 96 U/L U/L (23-300) Patient hx anesthesia problems: none Family hx anesthesia problems: none PMFSH Past Medical History Medical History (Updated 10/26/20 @ 13:35 by Salvador Goins MD) Hyperlipidemia Hypertension Obesity Vitamin D deficiency Family History Family History Father Family history of kidney disease Family history of renal failure Mother Carcinoma of colon Family history of cardiovascular disease Grandparent Diabetes mellitus Family history of cardiovascular disease Family history of Parkinson's disease Social History Social History Smoking status: Never smoker Alcohol intake: never Substance use: never Substance use type: does not use Gender identity (if verbalized by the patient): Female Spiritual care concerns: No Agree to blood products: Yes Anes - Eval Final PreProcedure Day of Procedure 10/26/20 13:34 Patient weight: obese Heart: regular rate and rhythm Lungs: clear to auscultation and normal air movement Airway: Mallampati scale class II Neurological: alert and oriented Last oral intake: >/= 8 hours ASA classification: III Emergent: no Anesthetic plan: proceed Anesthesia type and monitoring: general GIVS and LMA Informed Consent: The patient's anesthetic plan and its attendant risks and benefits were discussed with the patient/family/POA. Questions were solicited and answers pr
[2020-10-26 14:42] VITALS: BP 100/48; PULSE 72; RESP 12; TEMP 36.5; O2SAT 93
--- NOTE | 2020-10-26 14:59 | PM.PROC ---
Procedure Note - Detailed Date of procedure: 10/26/20 Pre-op diagnosis: acute pancreatitis Thickened endometrium Post-op diagnosis: same Procedure performed: Hysteroscopy D&C Description of procedure: The patient was taken the operating room. She was prepped and draped in the dorsal lithotomy position after induction of mac anesthesia. A speculum was placed in the vagina. The cervix grasped with a tenaculum. The cervix was injected at 3 and 9:00 a.m. with 1% lidocaine. Cervix was dilated up to 1 cm. The hysteroscope was inserted the intrauterine cavity and the above findings were noted. A medium-size curette was then used to curettage all surfaces within the endometrial cavity. The endometrial curettings were collected on a Telfa. There were submitted to the pathology department. Hysteroscope was reinserted the intrauterine cavity to re-examine the endometrial surfaces. The hysteroscope was withdrawn. The tenaculum was removed. The speculum was removed. The patient tolerated the procedure well. She was taken recovery room stable condition. Sponge lap needle counts were correct x2. Anesthesia: MAC Surgeon: Dai Ralph MD Estimated blood loss (mL): 75 Drains: No Packing: No Pathology: yes Complications: No immediate complications Condition: stable Disposition: PACU Findings: There was some thin scar with a cystic component in the endometrium. All appeared benign. There was normal appearing vulva vagina and cervix.
--- NOTE | 2020-10-26 15:02 | WPDCN ---
Assessment and Plan Assessment and plan (1) Thickened endometrium: Code(s): R93.89 - Abnormal findings on diagnostic imaging of other specified body structures Status: Acute Assessment and Plan: This patient is a 75-year-old female with thickened endometrium. She was admitted for pancreatitis and observation. While here a hysteroscopy D&C was performed. The endometrium appeared benign. There was some thin scar tissue with cystic component that give it some weakness. Most of it was removed with D& C. The scar tissue was firmly attached and could not entirely removed. It appears benign. Has been sampled thoroughly. If there is a question of its malignant potential, the issue. Rest. She will follow up in 1 week. She may be discharged. HPI Data of Consult Date/Time: 10/26/20 15:02 Requesting Physician: Kalpana Siddiqui MD This patient is a 75-year-old female presented to the hospital with abdominal pain and was diagnosed with pancreatitis. She is for observation and imaging denoted a thickened endometrium. Ultrasound confirmed a thickened endometrium. I discussed with the patient the significance of a thickened endometrium. I recommended that we evaluate the endometrium. I indicated her the could be done as an outpatient or we can get it done here in the hospital. We agreed to proceed with hysteroscopy D&C. Primary Care Provider: Sirena Hart, Consult Narrative Narrative: Eugenia Kohler is a 75 year old female Review of Systems Constitutional: Constitutional: Reports no additional constitutional complaints, Denies fatigue, Denies headache(s), Denies lethargy and Denies weakness Eyes: Eyes: Reports no additional eye complaints, Denies blurry vision and Denies photophobia ENT: Reports as per HPI, Denies headache(s) and Denies neck pain Cardiovascular: Cardiovascular: Denies chest pain, Denies diaphoresis, Denies leg edema, Denies palpitations and Denies dyspnea Respiratory: Respiratory: Denies hemoptysis, Denies dyspnea and Denies wheezing Gastrointestinal: Gastrointestinal: Denies abdominal pain, Denies melena, Denies bloating, Denies hematochezia, Denies nausea and Denies vomiting Genitourinary: Genitourinary: Reports no additional female genitourinary complaints Musculoskeletal: Musculoskeletal: Denies joint swelling, Denies neck pain, Denies numbness and Denies stiffness Neurologic: Denies Abnormal speech present, Denies confusion, Denies headache(s), Denies numbness and Denies weakness Psychiatric: Psychiatric: Denies anxiety, Denies confusion, Denies depression, Denies homicidal ideation and Denies suicidal ideation Endocrine: Endocrine: Denies fatigue and Denies palpitations Allergic/Immunologic: Allergic/Immunologic: Denies wheezing PMFSH Past Medical History Medical History (Updated 10/26/20 @ 13:35 by Salvador Goins MD) Hyperlipidemia Hypertension Obesity Vitamin D deficiency Family History Family History Father Family history of kidney disease Family history of renal failure Mother Carcinoma of colon Family history of cardiovascular disease Grandparent Diabetes mellitus Family history of cardiovascular disease Family history of Parkinson's disease Social History Social History Smoking status: Never smoker Alcohol intake: never Substance use: never Substance use type: does not use Gender identity (if verbalized by the patient): Female Spiritual care concerns: No Agree to blood products: Yes Meds Home Medications and Allergies Home Medications Medication Instructions Recorded Confirmed Type cholecalciferol (vitamin D3) 125 5,000 unit PO DAILY #90 cap 10/06/19 10/24/20 Rx mcg (5,000 unit) capsule biotin 5,000 mcg sublingual tablet 5,000 mcg SUBLINGUAL DAILY 05/23/20 10/24/20 History cyanocobalamin (vitamin B-12)
[2020-10-26 15:08] VITALS: BP 124/70; PULSE 70; RESP 14; O2SAT 97
--- NOTE | 2020-10-26 15:09 | SUR.PHASEI ---
PT AWAKE AND ALERT. DENIES PAIN. RAC IV LEAKING, DC'D INTACT AND NEW IV STARTED.
[2020-10-26 15:55] VITALS: BP 146/79; PULSE 75; RESP 14; TEMP 36.2; O2SAT 95
--- NOTE | 2020-10-27 07:13 | WPDANESPN ---
Anes - Prog Note Post-Op Date/Time: 10/27/20 07:13 Cardiovascular status: normal Respiratory status: normal Airway patency: baseline Mental status: baseline Post-Op hydration status: normal Vital Signs: Last Vital Signs Temp 97.1 F L 10/26/20 15:55 Pulse 75 10/26/20 15:55 Resp 14 10/26/20 15:55 BP 146/79 H 10/26/20 15:55 Pulse Ox 95 10/26/20 15:55 Pain Score (VAS): 11/26 I/O: Intake & Output 10/26/20 10/26/20 10/27/20 15:59 23:59 07:59 Intake Total 100 Output Total 1300 Balance -1200 Laboratory Tests 10/26/20 05:04 10/26/20 06:36 Post-procedural complaints: none Patient Feedback: Patient satisfied with anesthetic care.
== END 2020-10-26 17:00 | disposition home or self-care (01) | DRG 989 ==
LOC: ANHED 14:17 → ANH2MED 14:52
PROVIDERS: Emergency Medicine; Obstetrics & Gynecology; Admitting Provider Family Medicine; Emergency Provider Emergency Medicine; PCP Family Medicine; Visit Provider Family Medicine
PROC: 0U5B8ZZ Destruction of Endometrium, Via Natural or Artificial Opening Endoscopic (ICD-10-PCS; CPT 58563; principal; 2020-10-26 13:30)
DX: K85.00 Idiopathic acute pancreatitis without necrosis or infection (principal); R93.89 Abnormal findings on diagnostic imaging of other specified body structures; E86.0 Dehydration; E78.5 Hyperlipidemia, unspecified; N28.9 Disorder of kidney and ureter, unspecified; E55.9 Vitamin D deficiency, unspecified; I10 Essential (primary) hypertension; E66.9 Obesity, unspecified; Z68.30 Body mass index [BMI] 30.0-30.9, adult; Z80.0 Family history of malignant neoplasm of digestive organs
CPT/HCPCS: 36415; 74177; 76705; 76830; 76856; 80053; 80061; 80074; 81001; 82248; 83690; 83735; 85025; 85027; 88305; 99285; A9270; C9113; J1100; J2370; J2405; J2704; J7120; Q9967

== ENCOUNTER 2021-07-25 00:49 | Day surgery (SDC) | payer MEDICARE, SELFPAY ==
[2021-07-12 14:30] VITALS: BMI 30.2
[2021-07-25 09:11] VITALS: BP 168/82; PULSE 75; RESP 20; TEMP 35.9; O2SAT 98; BMI 28.9
[2021-07-25] MEDS: LACTATED RINGERS 1,000 ML 150 ML IV CONT (09:18)
--- NOTE | 2021-07-25 09:36 | WPDANESEPPF ---
Anes - Initial Pre Proc Eval Procedure: Operation Date: 07/25/21 09:30 Proposed Procedures p Screening Colonoscopy - Marcelo Brewer MD Date/Time: 07/25/21 09:36 Surgeon: Marcelo Brewer MD Pre Op Diagnosis: family hx of colon ca Z80.0 Patient Data Age: 76 Gender: F Height: 1.63 m Weight: 76.5 kg Last Vital Signs Temp 35.9 C L 07/25/21 09:11 Pulse 75 07/25/21 09:11 Resp 20 07/25/21 09:11 BP 168/82 H 07/25/21 09:11 Pulse Ox 98 07/25/21 09:11 Allergies Allergy/AdvReac Type Severity Reaction Status Date / Time lisinopril Allergy Severe Cough Verified 07/25/21 09:10 lovastatin Allergy Severe Nausea And Verified 07/25/21 09:10 Vomiting gemfibrozil Allergy Intermediate Abdominal Verified 07/25/21 09:10 pain Home Medications Medication Instructions Recorded Confirmed Type cholecalciferol (vitamin D3) 125 5,000 unit PO DAILY #90 cap 10/06/19 07/12/21 Rx mcg (5,000 unit) capsule biotin 5,000 mcg sublingual tablet 5,000 mcg SUBLINGUAL DAILY 05/23/20 07/12/21 History cyanocobalamin (vitamin B-12) 500 500 mcg PO DAILY 05/23/20 07/12/21 History mcg tablet pantoprazole 40 mg tablet,delayed See Rx Instructions .ROUTE 03/21/21 07/12/21 Rx release .COMPLEX #90 tablet losartan 50 mg tablet See Rx Instructions .ROUTE 06/19/21 07/12/21 Rx .COMPLEX #90 tablet sod picosulf 10 mg-magnes 3.5 160 ml PO BID #160 ml 07/04/21 07/12/21 Rx gram-citric 12 gram/160 mL oral solution Patient hx anesthesia problems: none Family hx anesthesia problems: none PMFSH Past Medical History Medical History GERD (gastroesophageal reflux disease) Hyperlipidemia Hypertension Obesity Vitamin D deficiency Surgical History Surgical History Hx of tonsillectomy S/P skin biopsy Family History Family History Father Family history of kidney disease Family history of renal failure Mother Carcinoma of colon Family history of cardiovascular disease Grandparent Diabetes mellitus Family history of cardiovascular disease Family history of Parkinson's disease Social History Social History Smoking status: Never smoker Second hand tobacco smoke exposure: Yes Alcohol intake: current Drinks per week: 1 Substance use: never Substance use type: does not use Living arrangements: with family Gender identity (if verbalized by the patient): Female Spiritual care concerns: No Agree to blood products: Yes Anes - Eval Final PreProcedure Day of Procedure 07/25/21 09:36 Patient weight: overweight Heart: regular rate and rhythm Lungs: clear to auscultation Airway: Mallampati scale class II Neurological: alert and oriented Last oral intake: >/= 8 hours ASA classification: III Emergent: no Anesthetic plan: proceed Anesthesia type and monitoring: general GIVS and standard monitoring Informed Consent: The patient's anesthetic plan and its attendant risks and benefits were discussed with the patient/family/POA. Questions were solicited and answers provided to the satisfaction of the patient/family/POA.
--- NOTE | 2021-07-25 09:55 | PM.HPGS ---
History of Present Illness History of Present Illness Consent: Risks, benefits, and alternatives have been discussed and questions answered. Patient agrees to proceed with procedure. Chief complaint: family hx of colon ca Z80.0 Narrative: Eugenia Kohler is a 76 year old female with last colonoscopy 2013, mother had colon cancer Review of Systems Constitutional: Constitutional: Denies headache(s) and Denies weakness Eyes: Eyes: Denies blurry vision ENT: Reports Normal hearing present, Denies headache(s) and Denies neck pain Cardiovascular: Cardiovascular: Denies chest pain and Denies dyspnea Respiratory: Respiratory: Denies dyspnea Gastrointestinal: Gastrointestinal: Reports no additional gastrointestinal complaints Genitourinary: Genitourinary: Denies dysuria Musculoskeletal: Musculoskeletal: Denies neck pain Integumentary/Breasts: Skin/Breast: Denies dry skin Neurologic: Reports Normal hearing present, Denies headache(s) and Denies weakness Psychiatric: Psychiatric: Denies anxiety Endocrine: Endocrine: Denies change in body appearance Hematologic/Lymphatic: Hematologic/Lymphatic: Denies easy bleeding Allergic/Immunologic: Allergic/Immunologic: Denies urticaria PMFSH Past Medical History Medical History GERD (gastroesophageal reflux disease) Hyperlipidemia Hypertension Obesity Vitamin D deficiency Surgical History Surgical History Hx of tonsillectomy S/P skin biopsy Family History Family History Father Family history of kidney disease Family history of renal failure Mother Carcinoma of colon Family history of cardiovascular disease Grandparent Diabetes mellitus Family history of cardiovascular disease Family history of Parkinson's disease Social History Social History Smoking status: Never smoker Second hand tobacco smoke exposure: Yes Alcohol intake: current Drinks per week: 1 Substance use: never Substance use type: does not use Living arrangements: with family Gender identity (if verbalized by the patient): Female Spiritual care concerns: No Agree to blood products: Yes Meds Home Medications and Allergies Home Medications Medication Instructions Recorded Confirmed Type cholecalciferol (vitamin D3) 125 5,000 unit PO DAILY #90 cap 10/06/19 07/12/21 Rx mcg (5,000 unit) capsule biotin 5,000 mcg sublingual tablet 5,000 mcg SUBLINGUAL DAILY 05/23/20 07/12/21 History cyanocobalamin (vitamin B-12) 500 500 mcg PO DAILY 05/23/20 07/12/21 History mcg tablet pantoprazole 40 mg tablet,delayed See Rx Instructions .ROUTE 03/21/21 07/12/21 Rx release .COMPLEX #90 tablet losartan 50 mg tablet See Rx Instructions .ROUTE 06/19/21 07/12/21 Rx .COMPLEX #90 tablet sod picosulf 10 mg-magnes 3.5 160 ml PO BID #160 ml 07/04/21 07/12/21 Rx gram-citric 12 gram/160 mL oral solution Allergies Allergy/AdvReac Type Severity Reaction Status Date / Time lisinopril Allergy Severe Cough Verified 07/25/21 09:10 lovastatin Allergy Severe Nausea And Verified 07/25/21 09:10 Vomiting gemfibrozil Allergy Intermediate Abdominal Verified 07/25/21 09:10 pain Vital Signs Vital Signs - 24 hr 07/25/21 09:11 Temperature 96.7 F L Pulse Rate 75 Respiratory Rate 20 Blood Pressure 168/82 H Pulse Oximetry 98 Exam Const: General: comfortable and no acute distress HENMT: General nose exam: Normal nares present Eyes: General: appearance normal, both eyes and all related structures Neck: Neck: no JVD Resp: Auscultation: clear to auscultation bilaterally Cardio: Rate: regular rate Rhythm: regular rhythm GI: Inspection: non-distended GI Palp: Yes Soft to palpation Skin: General skin exam: normal color Neuro: General: gait n
[2021-07-25 10:12] VITALS: BP 95/56; PULSE 63; RESP 20; O2SAT 97
[2021-07-25 10:22] VITALS: BP 100/56; PULSE 64; RESP 20; O2SAT 97
[2021-07-25 10:32] VITALS: BP 117/74; PULSE 71; RESP 20; O2SAT 97
== END 2021-07-25 10:50 | disposition home or self-care (01) ==
PROVIDERS: PCP Family Medicine; Visit Provider Internal Medicine Gastroenterology
PROC: 0DJD8ZZ Inspection of Lower Intestinal Tract, Via Natural or Artificial Opening Endoscopic (ICD-10-PCS; CPT 45378; principal; 2021-07-25 09:30)
DX: Z12.11 Encounter for screening for malignant neoplasm of colon (principal); K63.5 Polyp of colon; K57.30 Diverticulosis of large intestine without perforation or abscess without bleeding; K64.8 Other hemorrhoids; Z80.0 Family history of malignant neoplasm of digestive organs; I10 Essential (primary) hypertension; E78.5 Hyperlipidemia, unspecified; E55.9 Vitamin D deficiency, unspecified; K21.9 Gastro-esophageal reflux disease without esophagitis; E66.9 Obesity, unspecified; Z68.28 Body mass index [BMI] 28.0-28.9, adult
CPT/HCPCS: 45385; 88305; J2704; J7120